=== PATIENT | female | born 1985 | race African-American/Black ===

== ENCOUNTER 2016-07-26 12:57 | Emergency (ER) | payer OTHER ==
--- NOTE | 2016-07-26 13:06 | ER Document Report ---
ED Medical Screen (RME) - General Stated Complaint: FEVER,THROAT PAIN Mode of Arrival: Ambulatory Information source: Patient Notes: Patient complains of sore throat that started yesterday with fever today. TRAVEL OUTSIDE OF THE [place] IN LAST 30 DAYS: No - Related Data Allergies/Adverse Reactions: No Known Allergies Allergy (Verified 06/21/16 17:47) Past Medical History - Past Medical History Cardiac Medical History: Reports: Hx Hypertension Neurological Medical History: Reports: Hx Migraine Skin Medical History: Reports Hx Eczema Past Surgical History: Reports: Hx Tubal Ligation - Immunizations Immunizations up to date: Yes Hx Diphtheria, Pertussis, Tetanus Vaccination: Yes - 2014 Physical Exam - HEENT Pharynx: Erythema. No: Potential airway comprom.
[2016-07-26] MEDS ORDERED: IBUPROFEN 600 MG TABLET PO ONE (14:41)
[2016-07-26] MEDS ORDERED: PREDNISONE 20 MG TABLET PO ONE (14:41)
--- NOTE | 2016-07-26 14:45 | ER Document Report ---
ED ENT - General Chief Complaint: Sore Throat Stated Complaint: FEVER,THROAT PAIN Time seen by provider: 14:40 Mode of Arrival: Ambulatory Information source: Patient Notes: 30-year-old female presents to ED for sore throat cough and sneezing and a fever yesterday. TRAVEL OUTSIDE OF THE [place] IN LAST 30 DAYS: No - HPI Patient complains to provider of: Nose problem, Throat problem, Other Onset: Yesterday Onset/Duration: Gradual Quality of pain: Stabbing Severity: Severe Pain Level: 5 Context: Recent Illness Location of pain: Nose, Sinus, Throat Associated symptoms: Cough, Fever, Runny nose, Sinus pain, Sinus drainage, Sore throat Similar symptoms previously: Yes Recently seen / treated by doctor: Yes - Related Data Allergies/Adverse Reactions: No Known Allergies Allergy (Verified 07/26/16 13:05) Past Medical History - General Information source: Patient - Social History Smoking Status: Never Smoker Chew tobacco use (# tins/day): No Frequency of alcohol use: None Drug Abuse: None Family History: Arthritis, CVA, Hypertension, Thyroid Disfunction Patient has suicidal ideation: No Patient has homicidal ideation: No - Past Medical History Cardiac Medical History: Reports: Hx Hypertension Pulmonary Medical History: Reports: None EENT Medical History: Reports: None Neurological Medical History: Reports: Hx Migraine Endocrine Medical History: Reports: None Renal/ Medical History: Reports: None Malignancy Medical History: Reports: None GI Medical History: Reports: None Musculoskeltal Medical History: Reports None Skin Medical History: Reports Hx Eczema Psychiatric Medical History: Reports: None Traumatic Medical History: Reports: None Infectious Medical History: Reports: None Surgical Hx: Negative Past Surgical History: Reports: None, Hx Tubal Ligation - Immunizations Immunizations up to date: Yes Hx Diphtheria, Pertussis, Tetanus Vaccination: Yes - 2014 Physical Exam - Vital signs Vitals: Temp Pulse Resp BP Pulse Ox 87.7 F L 111 H 20 140/79 H 100 07/26/16 13:05 07/26/16 13:05 07/26/16 13:05 07/26/16 13:05 07/26/16 13:05 Interpretation: Normal Notes: Temperature 98.7 pulse 111 respirations 20 pulse ox 100% and blood pressure 140/ 79 - General General appearance: Appears well, Alert - HEENT Head: Normocephalic, Atraumatic Eyes: Normal Pupils: PERRL Ears: Normal External canal: Normal Tympanic membrane: Normal Sinus: Normal Nasal: Purulent discharge, Swelling Mouth/Lips: Normal Mucous membranes: Normal Pharynx: Post nasal drainage Neck: Normal - Respiratory Respiratory status: No respiratory distress Chest status: Nontender Breath sounds: Normal, Nonproductive cough Chest palpation: Normal - Cardiovascular Rhythm: Regular Heart sounds: Normal auscultation Murmur: No - Abdominal Inspection: Normal Distension: No distension Bowel sounds: Normal Tenderness: Nontender Organomegaly: No organomegaly - Back Back: Normal, Nontender - Extremities General upper extremity: Normal inspection, Nontender, Normal color, Normal ROM , Normal temperature General lower extremity: Normal inspection, Nontender, Normal color, Normal ROM , Normal temperature, Normal weight bearing. No: Brett's sign - Neurological Neuro grossly intact: Yes Cognition: Normal Orientation: AAOx4 Dillon Coma Scale Eye Opening: Spontaneous Dillon Coma Scale Verbal: Oriented Dillon Coma Scale Motor: Obeys Commands Dillon Coma Scale Total: 15 Speech: Normal Motor strength normal: LUE, RUE, LLE, RLE Sensory: Normal - Psychological Associated symptoms: Normal affect, Normal mood - Skin Skin Temperature: Warm Skin Moisture: Dry Skin Color: Normal Course - Vital Signs Vital signs: Temp Pulse Resp BP Pulse Ox 87.7 F L 111 H 20 140/79 H 100 07/26/16 13:05 07/26/16 13:05 07/26/16 13:05 07/26/16 13:05 07/26/16 13:05 Discharge - Discharge Clinical Impression: URI (upper respiratory infection) Qualifiers: URI type: unspecified URI Qualified Code(s): J06.9 - Acute upper respiratory infection, unspecified Disposition: HOME, SELF-CARE Instructions: Family Physicians / Practices Additional Instructions: UPPER RESPIRATORY ILLNESS: You have a viral infection of the respiratory passages -- a "cold." This common infection causes nasal congestion, drainage, and often sore throat and cough. It is highly contagious. The disease usually lasts about 10 to 14 days. There is no "cure" for the viral infection -- it must run its course. If there is a complication, such as bacterial infection in the nose, sinuses, middle ear, or bronchial tubes, antibiotics may be required. The antibiotics won't affect the virus. Drink plenty of fluids. A humidifier may help. An expectorant medication or decongestant may make you more comfortable. Use acetaminophen or ibuprofen for fever or aches. See the doctor if fever persists over two days, if there is any significant worsening of your symptoms, or if you simply fail to improve as expected. SORE THROAT: Sore throats may be caused by viruses, bacteria, or fungi. Most are due to a virus, and must get better on their own. Bacterial sore throats, particularly those due to "strep," need treatment with antibiotics. If an antibiotic is prescribed, be sure to take the medication for a full 10 days. Failure to take the antibiotic can result in complications such as rheumatic fever. Sometimes, an injection of antibiotics is given instead of pills or liquid. This single "shot" is equal in effectiveness to the oral medication. To relieve symptoms, take acetaminophen for pain. Sip clear liquids frequently, or eat popsicles or ice chips. Anesthetic sprays or lozenges may help. Make sure the air in the room is not too dry. Avoid using decongestants or antihistamines. Call the doctor if there is no improvement in two days, or if you have difficulty breathing, increasing throat pain, high fever, rash, or frequent vomiting. STEROID MEDICATION: You have been given an injection of or oral medicine of the cortisone/ steroid class. This medication is used to control inflammation or allergy. Dominick t is usually only given for a short period of time, until the acute process subsides. There are usually no side effects from short-term use of cortisone-like medications. Some persons feel an increased sense of well-being and are not sleepy at bedtime. Long-term use of cortisone medications is best avoided, unless required for a severe condition. If your condition does not remit, or relapses after the course of corticosteroid medication, you should consult your physician. Increase your fluid intake to thin out your secretions, gargle with warm salt water frequently to decrease your sore throat. USE OF ACETAMINOPHEN (Tylenol): Acetaminophen may be taken for pain relief or fever control. It's much safer than aspirin, offering a wider range of "safe" dosages. It is safe during . Some brand names are Tylenol, Panadol, Datril, Anacin 3, Tempra, and Liquiprin. Acetaminophen can be repeated every four hours. The following are maximum recommended dosages: >89 pounds or adults 650 mg to 900 mg Acetaminophen can be repeated every four hours. Maximum dose not to exceed 4000 mg a day. Ibuprofen Ibuprofen is an excellent, safe drug for pain control. In addition, it has potent antiinflammatory effects which are beneficial, especially in the treatment of injuries, arthritis, or tendonitis. It's best to take ibuprofen with food. Persons with ulcer disease or allergy to aspirin should notify their physician of this before taking ibuprofen. Take the medication exactly as prescribed. Don't take additional doses unless instructed to do so by your doctor. If you develop wheezing, shortness of breath, hives, faintness, stomach pain, vomiting, or dark black stools, return for re-evaluation at once. FOLLOW-UP CARE: If you have been referred to a physician for follow-up care, call the physician s office for an appointment as you were instructed or within the next two days. If you experience worsening or a significant change in your symptoms, notify the physician immediately or return to the Emergency Department at any time for re-evaluation. Forms: Elevated Blood Pressure
[2016-07-26 14:59] VITALS: BP 122/78
== END 2016-07-26 14:59 | disposition home or self-care (01) ==
LOC: ER 12:57
DX: J06.9 Acute upper respiratory infection, unspecified (principal); J02.9 Acute pharyngitis, unspecified; R50.9 Fever, unspecified; R07.0 Pain in throat; R05 Cough
CPT/HCPCS: 99282; J7512

== ENCOUNTER 2016-10-30 11:04 | Emergency (ER) | payer OTHER ==
[2016-10-30 11:12] VITALS: BP 138/91
--- NOTE | 2016-10-30 11:34 | ER Document Report ---
HPI - HPI Patient complains to provider of: dental pain Pain Level: 5 Context: 31 yo female c/o pain to right upper tooth x 3 days. has appointment with oral surgeon on November 11, but pain is too intense. cant eat. tearful Associated Symptoms: None Exacerbated by: Denies Relieved by: Denies Similar symptoms previously: Yes - ROS Systems Reviewed and Negative: Yes All other systems reviewed and negative - REPRODUCTIVE Reproductive: DENIES: : - DERM Skin Color: Normal Past Medical History - General Information source: Patient - Social History Smoking Status: Current Every Day Smoker Frequency of alcohol use: None Drug Abuse: None Lives with: Family Family History: Arthritis, CVA, Hypertension, Thyroid Disfunction Patient has suicidal ideation: No Patient has homicidal ideation: No - Past Medical History Cardiac Medical History: Reports: Hx Hypertension Neurological Medical History: Reports: Hx Migraine Renal/ Medical History: Denies: Hx Peritoneal Dialysis Skin Medical History: Reports Hx Eczema Past Surgical History: Reports: Hx Tubal Ligation - Immunizations Immunizations up to date: Yes Hx Diphtheria, Pertussis, Tetanus Vaccination: Yes - 2014 Vertical Provider Document - CONSTITUTIONAL Agree With Documented VS: Yes Exam Limitations: No Limitations General Appearance: Mild Distress - tearful - INFECTION CONTROL TRAVEL OUTSIDE OF THE [place] IN LAST 30 DAYS: No - HEENT HEENT: Atraumatic, PERRLA Mouth Diagram: 1 - fractured tooth. no gingival edema - RESPIRATORY O2 Sat by Pulse Oximetry: 98 Course - Vital Signs Vital signs: Temp Pulse Resp BP Pulse Ox 98.2 F 65 16 138/91 H 98 10/30/16 11:11 10/30/16 11:11 10/30/16 11:11 10/30/16 11:11 10/30/16 11:11 Discharge - Discharge Clinical Impression: Pain, dental Condition: Stable Disposition: HOME, SELF-CARE Instructions: Oral Narcotic Medication ([facility]), Penicillin V K ([facility]) Additional Instructions: Take medications as prescribed Use OTC dental wax to protect tooth fracture Follow up with dental tomorrow for further evaluation and treatment Prescriptions: Hydrocodone/Acetaminophen [[place] 5-325 mg Tablet] 1 tab PO Q4H PRN #15 tablet PRN Reason: Penicillin V Potassium [Penicillin Vk 500 mg Tablet] 500 mg PO BID #20 tablet Forms: Return to Work
== END 2016-10-30 11:41 | disposition home or self-care (01) ==
LOC: ER 11:04
DX: K08.89 Other specified disorders of teeth and supporting structures (principal); F17.200 Nicotine dependence, unspecified, uncomplicated; I10 Essential (primary) hypertension
CPT/HCPCS: 99282

== ENCOUNTER 2016-11-07 09:45 | Emergency (ER) | payer OTHER ==
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
[2016-11-07] MEDS ORDERED: CYCLOBENZAPRINE HCL 10 MG TABLET PO ONE (10:27)
[2016-11-07] MEDS ORDERED: KETOROLAC TROMETHAMINE 60 MG/2 ML SDV IM ONE (10:27)
[2016-11-07 13:11] VITALS: BP 125/82
== END 2016-11-07 13:00 | disposition home or self-care (01) ==
LOC: ER 09:45
DX: S60.211A Contusion of right wrist, initial encounter (principal); S70.01XA Contusion of right hip, initial encounter; V49.40XA Driver injured in collision with unspecified motor vehicles in traffic accident, initial encounter; M62.830 Muscle spasm of back; M25.551 Pain in right hip; M79.601 Pain in right arm; R20.0 Anesthesia of skin; R20.2 Paresthesia of skin; I10 Essential (primary) hypertension
CPT/HCPCS: 99284

== ENCOUNTER 2017-05-02 08:12 | Emergency (ER) | payer OTHER ==
[2017-05-02] MEDS ORDERED: KETOROLAC TROMETHAMINE INJ/PF 30 MG/1 ML SDV IV ONE (08:38)
[2017-05-02] MEDS ORDERED: FAMOTIDINE INJ/PF 20 MG/2 ML SDV IV ONE (08:38)
[2017-05-02] MEDS ORDERED: NORMAL SALINE 1000 ML 1,000 ML IV ONE (08:38)
[2017-05-02] MEDS ORDERED: ONDANSETRON HCL INJ/PF 4 MG/2 ML SDV IV ONE (08:38)
[2017-05-02 09:04] LABS: ABSOLUTE EOSINOPHILS # (AUTO) 0.1 10^3/uL (0.0-0.6); ABSOLUTE LYMPHOCYTES (AUTO) 1.4 10^3/uL (0.5-4.7); ABSOLUTE MONOCYTES (AUTO) 0.4 10^3/uL (0.1-1.4); ABSOLUTE NEUT (AUTO) 2.9 10^3/uL (1.7-8.2); BASOPHILS % (AUTO) 0.7 % (0-2); EOSINOPHILS % (AUTO) 2.7 % (0-6); HEMATOCRIT 35.6 % (36.0-47.0); HEMOGLOBIN 11.5 g/dL (12.0-15.5); HGB HCT DIFFERENCE -1.1; LYMPHOCYTES % (AUTO) 28.7 % (13-45); MEAN CORPUSCULAR HEMOGLOBIN 24.6 pg (27.0-33.4); MEAN CORPUSCULAR HGB CONC 32.2 g/dL (32.0-36.0); MEAN CORPUSCULAR VOLUME 76 fl (80-97); MONOCYTES % (AUTO) 8.4 % (3-13); RED BLOOD COUNT 4.67 10^6/uL (3.72-5.28); RED CELL DISTRIBUTION WIDTH 13.4 % (11.5-14.0); SEGMENTED NEUTROPHILS % (AUTO) 59.5 % (42-78); WHITE BLOOD COUNT 4.8 10^3/uL (4.0-10.5)
[2017-05-02] MEDS ORDERED: MAG HYDROX/AL HYDROX/SIMETH SUSP 30 ML UDCUP PO ONE (09:34)
[2017-05-02] MEDS ORDERED: LIDOCAINE 2% VISCOUS SOLN 20 ML UDCUP PO ONE (09:34)
--- NOTE | 2017-05-02 09:35 | ER Document Report ---
ED General - General Chief Complaint: Upper Abdominal Pain Stated Complaint: HEADACHE Time Seen by Provider: 05/02/17 08:30 Mode of Arrival: Ambulatory Information source: Patient Notes: Patient presents complaining of headache pain that comes and goes for the past 2 days. Patient also reports upper abdominal pain that started yesterday. Patient does report nausea and vomiting yesterday although no vomiting today. Patient denies any fever or urinary symptoms. Patient does report increased belching recently. Patient denies any history of IV drug use. TRAVEL OUTSIDE OF THE [place] IN LAST 30 DAYS: No - HPI Onset: Other - 2 days Onset/Duration: Persistent Quality of pain: Sharp Pain Level: 2 Associated symptoms: Headache, Nausea, Vomiting - Yesterday. 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 denies: Fever, Recent illness EENT: No symptoms reported Cardiovascular: No symptoms reported. denies: Chest pain Respiratory: No symptoms reported. denies: Cough, Short of breath Gastrointestinal: Abdominal pain, Nausea, Vomiting. denies: Diarrhea Genitourinary: No symptoms reported. denies: Dysuria Female Genitourinary: No symptoms reported Musculoskeletal: No symptoms reported. denies: Back pain, Neck pain Skin: No symptoms reported Hematologic/Lymphatic: No symptoms reported Neurological/Psychological: Headaches. denies: Weakness Physical Exam - Vital signs Vitals: Temp Pulse BP Pulse Ox 98.4 F 75 116/71 100 05/02/17 08:17 05/02/17 08:17 05/02/17 08:17 05/02/17 08:17 - General General appearance: Appears well, Alert In distress: None - HEENT Head: Normocephalic, Atraumatic Eyes: Normal Conjunctiva: Normal Ears: Normal External canal: Normal Nasal: Normal Mouth/Lips: Normal Mucous membranes: Normal Neck: Normal, Supple. No: Lymphadenopathy, Meningismus - Respiratory Respiratory status: No respiratory distress Chest status: Nontender Breath sounds: Normal Chest palpation: Normal - Cardiovascular Rhythm: Regular Heart sounds: S1 appreciated, S2 appreciated Murmur: No - Abdominal Inspection: Obese Distension: No distension Bowel sounds: Normal Tenderness: Tender - epig, RUQ Organomegaly: No organomegaly - Back Back: Normal, Nontender. No: CVA tenderness, Vertebra tenderness - Extremities General upper extremity: Normal inspection, Normal ROM General lower extremity: Normal inspection, Normal ROM - Neurological Neuro grossly intact: Yes Cognition: Normal Melita Coma Scale Eye Opening: Spontaneous Melita Coma Scale Verbal: Oriented Swink Coma Scale Motor: Obeys Commands Melita Coma Scale Total: 15 - Psychological Associated symptoms: Normal affect, Normal mood - Skin Skin Temperature: Warm Skin Moisture: Dry Skin Color: Normal Course - Re-evaluation Re-evalutation: 05/02/17 09:35 Patient reports modest improvement of her headache symptoms. Patient does complain of continued upper abdominal tenderness. Additional medications ordered as well as ultrasound. 05/02/17 11:06 Patient reports that headache pain has resolved. Patient states that abdominal tenderness is markedly improved after GI cocktail. 05/02/17 Patient presents with abdominal pain without signs of peritonitis or other life- threatening or serious etiology. Patient appears stable for discharge and has been instructed to return immediately if the symptoms worsen in any way for reevaluation. The patient presents with headache without signs of FLOORPERSON bleed, stroke, infection, or other serious etiology. The patient is neurologically intact. Given the extremely low risk of these diagnoses further testing and evaluation for these possibilities does not appear to be indicated at this time. The patient has been instructed to return if the symptoms worsen or change in any way. - Vital Signs Vital signs: Temp Pulse Resp BP Pulse Ox 98.4 F 79 17 122/64 98 05/02/17 12:18 05/02/17 12:18 05/02/17 12:18 05/02/17 12:18 05/02/17 12:18 - Laboratory Result Diagrams: 05/02/17 08:47 05/02/17 09:18 Laboratory results interpreted by me: 05/02/17 08:47 Hgb 11.5 L Hct 35.6 L MCV 76 L MCH 24.6 L 05/02/17 11:42 Labs- Entire Visit 05/02/17 05/02/17 05/02/17 08:47 08:47 08:47 WBC 4.8 RBC 4.67 Hgb 11.5 L Hct 35.6 L MCV 76 L MCH 24.6 L MCHC 32.2 RDW 13.4 Plt Count 291 Seg Neutrophils % 59.5 Lymphocytes % 28.7 Monocytes % 8.4 Eosinophils % 2.7 Basophils % 0.7 Absolute Neutrophils 2.9 Absolute Lymphocytes 1.4 Absolute Monocytes 0.4 Absolute Eosinophils 0.1 Absolute Basophils 0.0 Sodium Cancelled Potassium Cancelled Chloride Cancelled Carbon Dioxide Cancelled Anion Gap Cancelled BUN Cancelled Creatinine Cancelled Est GFR ( Amer) Cancelled Est GFR (Non-Af Amer) Cancelled Glucose Cancelled Calcium Cancelled Total Bilirubin Cancelled Direct Bilirubin Cancelled Indirect Bilirubin Cancelled Neonat Total Bilirubin Cancelled AST Cancelled ALT Cancelled Alkaline Phosphatase Cancelled Total Protein Cancelled Albumin Cancelled Lipase Cancelled Serum HCG, Qual Cancelled 05/02/17 05/02/17 09:18 09:18 WBC RBC Hgb Hct MCV MCH MCHC RDW Plt Count Seg Neutrophils % Lymphocytes % Monocytes % Eosinophils % Basophils % Absolute Neutrophils Absolute Lymphocytes Absolute Monocytes Absolute Eosinophils Absolute Basophils Sodium 140.7 Potassium 3.6 Chloride 104 Carbon Dioxide 27 Anion Gap 10 BUN 9 Creatinine 0.65 Est GFR ( Amer) > 60 Est GFR (Non-Af Amer) > 60 Glucose 88 Calcium 8.6 Total Bilirubin 0.7 Direct Bilirubin 0.3 Indirect Bilirubin Not Reportable Neonat Total Bilirubin Not Reportable AST 27 ALT 29 Alkaline Phosphatase 70 Total Protein 7.0 Albumin 3.5 Lipase 31.6 Serum HCG, Qual NEGATIVE - Diagnostic Test Radiology reviewed: Reports reviewed Discharge - Discharge Clinical Impression: Epigastric pain Headache Qualifiers: Headache type: unspecified Headache chronicity pattern: unspecified pattern Intractability: not intractable Qualified Code(s): R51 - Headache Nausea and vomiting Qualifiers: Vomiting type: unspecified Vomiting Intractability: non-intractable Qualified Code(s): R11.2 - Nausea with vomiting, unspecified Condition: Stable Disposition: HOME, SELF-CARE Instructions: Abdominal Pain ([facility]), Antinausea Medication ([facility]), Gastritis ([facility] ), Headache ([facility]), Intravenous (IV) Fluids ([facility]), Toradol Injection ([facility]) Additional Instructions: Return immediately for any new or worsening symptoms Followup with your primary care provider, call tomorrow to make a followup appointment Stay well hydrated Follow-up with a primary care provider for further evaluation Prescriptions: Naproxen [Naprosyn 250 Nmg Tablet] 1 tab PO BID #14 tablet Omeprazole Magnesium [Prilosec Otc] 20 mg PO DAILY #15 tablet. Promethazine HCl [Phenergan 25 mg Tablet] 25 mg PO Q6H PRN #12 tablet PRN Reason: Sucralfate [Carafate 1 gm Tablet] 1 gm PO ACHS #40 tablet Forms: Return to Work Referrals: BRAYDON LANDRY MD [Primary Care Provider] - Follow up tomorrow
[2017-05-02 09:48] LABS: ALANINE AMINOTRANSFERASE 29 U/L (9-52); ALBUMIN 3.5 g/dL (3.5-5.0); ALKALINE PHOSPHATASE 70 U/L (38-126); ANION GAP 10 (5-19); ASPARTATE AMINO TRANSFERASE 27 U/L (14-36); BILIRUBIN,DIRECT 0.3 mg/dL (0.0-0.4); BILIRUBIN,TOTAL 0.7 mg/dL (0.2-1.3); BLOOD UREA NITROGEN 9 mg/dL (7-20); CALCIUM 8.6 mg/dL (8.4-10.2); CARBON DIOXIDE 27 mmol/L (22-30); CHLORIDE 104 mmol/L (98-107); CREATININE RESULT 0.65 mg/dL (0.52-1.25); GLUCOSE 88 mg/dL (75-110); LIPASE 31.6 U/L (23-300); POTASSIUM 3.6 mmol/L (3.6-5.0); SODIUM 140.7 mmol/L (137-145)
--- NOTE | 2017-05-02 11:15 | RADIOLOGY REPORT (SQ) ---
EXAM DESCRIPTION: U/S ABDOMEN LIMITED W/O DOP COMPLETED DATE/TIME: 05/02/2017 11:00 am REASON FOR STUDY: Epig, RUQ pain COMPARISON: None. TECHNIQUE: Dynamic and static grayscale images acquired of the abdomen and recorded on PACS. Damiono antonia selected color Doppler and spectral images recorded. LIMITATIONS: None. FINDINGS: PANCREAS: No masses. Visualized pancreatic duct normal caliber. LIVER: 17.1 cm. Normal echotexture. LIVER VASCULATURE: Normal directional flow of the main portal vein and hepatic veins. GALLBLADDER: No stones. Normal wall thickness. No pericholecystic fluid. ULTRASOUND-DETECTED JO'S SIGN: Negative. INTRAHEPATIC DUCTS AND COMMON DUCT: CBD and intrahepatic ducts normal caliber. No filling defects. INFERIOR VENA CAVA: Normal flow. AORTA: No aneurysm. RIGHT KIDNEY: Normal size, 10.4 cm. Normal echogenicity. No solid or suspicious masses. No hydroneph rosis. No calcifications. PERITONEAL AND RIGHT PLEURAL SPACE: No ascites or effusions. OTHER: No other significant findings. IMPRESSION: Borderline hepatomegaly. There is normal echotexture, however. No other significant fi ndings are seen. TECHNICAL DOCUMENTATION: JOB ID: [id number] [employer]- All Rights Reserved
[2017-05-02 12:19] VITALS: BP 122/64
== END 2017-05-02 12:19 | disposition home or self-care (01) ==
LOC: ER 08:12
DX: R10.13 Epigastric pain (principal); R51 Headache; R11.2 Nausea with vomiting, unspecified
CPT/HCPCS: 99284; 96361; 96374; 96375; 36415; 83690; 84703; 85025; 80053; 76705; J3490; J1885; J2405; J7030; S0028

== ENCOUNTER 2017-07-14 15:41 | Emergency (ER) | payer OTHER ==
[2017-07-14 15:53] VITALS: BP 133/75
== END 2017-07-14 17:30 | disposition left against medical advice (07) ==
LOC: ER 15:41
DX: Z53.21 Procedure and treatment not carried out due to patient leaving prior to being seen by health care provider (principal)

== ENCOUNTER 2018-09-07 08:31 | Emergency (ER) | payer OTHER ==
[2018-09-07 09:43] LABS: APPEARANCE,URINE CLOUDY; BILIRUBIN,URINE NEGATIVE (NEGATIVE); COLOR,URINE YELLOW; GLUCOSE, URINE NEGATIVE (NEGATIVE); KETONES,URINE NEGATIVE (NEGATIVE); LEUKOCYTE ESTERASE,URINE SMALL (NEGATIVE); NITRITE,URINE NEGATIVE (NEGATIVE); PROTEIN,URINE NEGATIVE (NEGATIVE); URINE SPECIFIC GRAVITY 1.009; UROBILINOGEN,URINE NEGATIVE mg/dL (<2.0)
[2018-09-07] MEDS ORDERED: AZITHROMYCIN 250 MG TABLET PO ONE (09:44)
[2018-09-07] MEDS ORDERED: LIDOCAINE 1% INJ-PF (10 MG/ML) 30 ML SDV INFIL ONE (09:44)
[2018-09-07] MEDS ORDERED: CEFTRIAXONE INJ 250 MG VIAL IM ONE (09:44)
--- NOTE | 2018-09-07 09:48 | ER Document Report ---
ED General - General Chief Complaint: Urinary Problem Stated Complaint: POSSIBLE UTI Time Seen by Provider: 09/07/18 09:10 Primary Care Provider: [facility] [Provider Group] - Follow up in 3-5 days Notes: Patient is a 33-year-old female that presents to the emergency department for chief complaint of dysuria and vaginal discharge. Patient states that she started having the symptoms about 4 days ago, with some burning with urination, and she is had some odorous vaginal discharge that she was concerned about as well. She denies having any abnormal vaginal bleeding, and denies any pelvic pain or pelvic discomfort. Denies having any pain with intercourse. She states she has had bacterial vaginosis in the past and it feels that it similar. She is also concerned she may have been exposed to gonorrhea or chlamydia, but she is not 100% on this. She states that she recently gave oral sex with 1 of her friends that also has other partners and she was concerned about this. Denies any any fevers, chills, night sweats, nausea, vomiting, abdominal pain, chest pain or shortness of breath. Past Medical History: Hypertension Past Surgical History: Tubal ligation Social History: Denies tobacco, alcohol or drug use. Family History: Reviewed and noncontributory for presenting illness Allergies: Reviewed, see documented allergy list. REVIEW OF SYSTEMS: Other than noted above, the 12 point review of systems was reviewed with the patient and were negative, all pertinent findings are included in the HPI. PHYSICAL EXAMINATION: Vital signs reviewed, nursing noted reviewed. GENERAL: Well-appearing, well-nourished and in no acute distress. HEAD: Atraumatic, normocephalic. EYES: Eyes appear normal, sclera anicteric, conjunctiva are normal. ENT: Moist mucous membranes. NECK: Normal range of motion, supple without lymphadenopathy LUNGS: Breath sounds clear to auscultation bilaterally and equal. No wheezes rales or rhonchi. HEART: Regular rate and rhythm without murmurs Abdomen: Obese, soft, nontender, bowel sounds present. No rebound, guarding or rigidity. EXTREMITIES: Nontender, good range of motion, no pitting or edema. NEUROLOGICAL: No focal neurological deficits. Moves all extremities spontaneously Motor and sensory grossly intact on exam. PSYCH: Normal mood, normal affect. SKIN: Warm, Dry, normal turgor, no rashes or lesions noted on exposed skin TRAVEL OUTSIDE OF THE [place] IN LAST 30 DAYS: No - Related Data Allergies/Adverse Reactions: No Known Allergies Allergy (Verified 09/07/18 08:34) Past Medical History - Social History Smoking Status: Never Smoker Frequency of alcohol use: None Drug Abuse: None Family History: Arthritis, CVA, Hypertension, Thyroid Disfunction Patient has suicidal ideation: No Patient has homicidal ideation: No - Past Medical History Cardiac Medical History: Reports: Hx Hypertension Neurological Medical History: Reports: Hx Migraine Renal/ Medical History: Denies: Hx Peritoneal Dialysis Skin Medical History: Reports Hx Eczema Past Surgical History: Reports: Hx Tubal Ligation - Immunizations Immunizations up to date: Yes Hx Diphtheria, Pertussis, Tetanus Vaccination: Yes - 2014 Physical Exam - Vital signs Vitals: Temp Pulse Resp BP Pulse Ox 99.6 F 83 16 131/81 H 100 09/07/18 08:36 09/07/18 08:36 09/07/18 08:36 09/07/18 08:36 09/07/18 08:36 Course - Re-evaluation Re-evalutation: Patient seen and examined, vital signs reviewed, patient appears well on exam, she did appear anxious and had some concerns about possible STD exposure, therefore we will treat her with Rocephin and azithromycin, denies any allergies. Her UA was reviewed, only trace leukocyte esterase, will send for culture, we will not treat for UTI at this time, rather will treat for bacterial vaginosis given that she had an odorous discharge. Given Flagyl 500 mg twice daily for 7 days. Advised to follow-up with women's health which she was agreeable to. - Vital Signs Vital signs: Temp Pulse Resp BP Pulse Ox 99.6 F 83 16 131/81 H 100 09/07/18 08:36 09/07/18 08:36 09/07/18 08:36 09/07/18 08:36 09/07/18 08:36 - Laboratory Laboratory results interpreted by me: 09/07/18 09:23 Ur Leukocyte Esterase SMALL H Urine Ascorbic Acid 20 H Discharge - Discharge Clinical Impression: Bacterial vaginosis, STD exposure Condition: Stable Disposition: HOME, SELF-CARE Instructions: Vaginosis, Bacterial ([facility]) Additional Instructions: You have been treated for both gonorrhea and chlamydia today, your testing is pending, if there is a positive result you will be notified, please take the prescribed Flagyl twice daily for 7 days, and follow-up with women's health. Prescriptions: Metronidazole [Flagyl 500 mg Tablet] 500 mg PO BID #14 tablet Referrals: [facility] [Provider Group] - Follow up in 3-5 days
[2018-09-07 11:35] VITALS: BP 137/82
[2018-09-07 11:46] LABS: CHLAM PCR NOT DETECTED (NOT DETECT); GON PCR NOT DETECTED (NOT DETECT)
== END 2018-09-07 10:36 | disposition home or self-care (01) ==
LOC: ER 08:31
DX: N76.0 Acute vaginitis (principal); B96.89 Other specified bacterial agents as the cause of diseases classified elsewhere; Z20.2 Contact with and (suspected) exposure to infections with a predominantly sexual mode of transmission; R39.198 Other difficulties with micturition; R30.0 Dysuria; I10 Essential (primary) hypertension
CPT/HCPCS: 99283; 96372; 87086; 81025; 87088; 81001; 87491; 87591; J3490; J0696

== ENCOUNTER 2018-09-18 08:41 | Emergency (ER) | payer OTHER ==
[2018-09-18 08:48] VITALS: BP 134/82
--- NOTE | 2018-09-18 09:07 | ER Document Report ---
HPI - HPI Time Seen by Provider: 09/18/18 09:06 Pain Level: 2 Notes: 33-year-old female presents for evaluation of what she feels to be swelling of her upper lip, on the left side especially patient was diagnosed with atopic dermatitis by a continuous improvement black belt for the same complaints a month ago to 2 months ago. Was given cream for this, patient states that the cream did help. Denies any fevers or chills, denies any pain to her lip, no new travel medications or foods. Denies fevers, chills, chest pain,palpitations, shortness of breath, dyspnea, nausea, vomiting, diarrhea, abdominal pain, hematuria,blurred vision, double vision, loss of vision, speech changes, LH, dizziness, syncope, headaches, wheezing, ST, URI, neck pain, weakness, muscle paralysis, weakness in bilateral upper or lower extremities equally or rash. - REPRODUCTIVE Reproductive: DENIES: : Past Medical History - General Information source: Patient - Social History Smoking Status: Unknown if Ever Smoked Family History: Arthritis, CVA, Hypertension, Thyroid Disfunction - Past Medical History Cardiac Medical History: Reports: Hx Hypertension Neurological Medical History: Reports: Hx Migraine Renal/ Medical History: Denies: Hx Peritoneal Dialysis Skin Medical History: Reports Hx Eczema Past Surgical History: Reports: Hx Tubal Ligation - Immunizations Immunizations up to date: Yes Hx Diphtheria, Pertussis, Tetanus Vaccination: Yes - 2014 [facility] Provider Document - CONSTITUTIONAL Agree With Documented VS: Yes Notes: PHYSICAL EXAMINATION: GENERAL: Well-appearing, well-nourished and in no acute distress. HEAD: Atraumatic, normocephalic. EYES: Pupils equal round and reactive to light, extraocular movements intact, conjunctiva are normal. ENT: Nares patent, oropharynx clear without exudates. Moist mucous membranes. No vesicular, indurated or warmth to touch to upper lip, very scant unlikely even to really call left upper lip swollen. No rashes. Uvula midline, airway patent. Speech clear tongue midline NECK: Normal range of motion, supple without lymphadenopathy LUNGS: Breath sounds clear to auscultation bilaterally and equal. No wheezes rales or rhonchi. HEART: Regular rate and rhythm without murmurs ABDOMEN: Soft, nontender, nondistended abdomen. No guarding, no rebound. No masses appreciated. Female : deferred Musculoskeletal: Normal range of motion, no pitting or edema. No cyanosis. NEUROLOGICAL: Cranial nerves grossly intact. Normal speech, normal gait. Normal sensory, motor exams PSYCH: Normal mood, normal affect. SKIN: Warm, Dry, normal turgor, no rashes or lesions noted. - INFECTION CONTROL TRAVEL OUTSIDE OF THE [place] IN LAST 30 DAYS: No Course - Re-evaluation Re-evalutation: 09/18/18 09:2 Afebrile, vitals stable no distress. Patient was seen by continuous improvement black belt 2 months ago same issue, prescribed cream Elidel for atopic dermatitis. Patient states t hat this did help however she was concerned because she had lip swelling and also wanted to know so she did have to be with her today. Vaccinations are up-to-date. Denies any new medications, travel or food. Denies any difficulty breathing or, chest pain, shortness of breath, no angioedema. Clinical examination does confirm a angioedema, patent airway, uvula midline. Patient is in no respiratory or overt distress. Patient wanted a second opinion. No noted lesions, vesicles noted on upper lip. No extending rash past vermilion border. Her vaccinations are up-to-date. No induration, warmth or tenderness to palpation. No lymphadenopathies. After performing a Medical Screening Examination, I estimate there is LOW risk for any life threatening rash. At this time the patient looks extremely well and there are no signs of systemic infection, however this may change at any time and the rash may change. I have reevaluated this patient multiple times and no significant life threatening changes are noted. The patient and I have discussed the diagnosis and risks, and we agree with discharging home with close follow-up with the understanding that symptoms and presentations can change. We also discussed returning to the Emergency Department immediately if new or worsening symptoms occur. We have discussed the symptoms which are most concerning (e.g., changing or worsening pain, fever, numbness, weakness, cool or painful digits) that necessitate immediate return. - Vital Signs Vital signs: Temp Pulse Resp BP Pulse Ox 98.2 F 77 14 134/82 H 99 09/18/18 08:46 09/18/18 08:46 09/18/18 08:46 09/18/18 08:46 09/18/18 08:46 Discharge - Discharge Clinical Impression: Atopic dermatitis Condition: Stable Disposition: HOME, SELF-CARE Instructions: Atopic Dermatitis (Eczema) ([facility]) Additional Instructions: Use cream as directed that was given to her by continuous improvement black belt for same diagnosis. Apply cool compress to site 20 minutes on 20 minutes off several times a day. Take [id number] ibuprofen and Tylenol if you experience any pain. If rash becomes worse, please be reevaluated. Return immediately for any new or worsening symptoms. Follow up with primary care provider, call tomorrow to make followup appointment. Forms: Return to Work Referrals: BRAYDON LANDRY MD [Primary Care Provider] - Follow up as needed
== END 2018-09-18 09:32 | disposition home or self-care (01) ==
LOC: ER 08:41
DX: L20.9 Atopic dermatitis, unspecified (principal); I10 Essential (primary) hypertension
CPT/HCPCS: 99283

== ENCOUNTER 2019-05-04 18:58 | Emergency (ER) | payer OTHER ==
[2019-05-04 19:04] VITALS: BP 122/73
--- NOTE | 2019-05-04 19:16 | ER Document Report ---
ED Medical Screen (RME) - General Chief Complaint: Vaginal Discharge Stated Complaint: VAGINAL DISCHARGE Time Seen by Provider: 05/04/19 19:14 Primary Care Provider: BRAYDON LANDRY MD [Primary Care Provider] - Follow up as needed Information source: Patient Notes: Patient complains of vaginal discharge with itching that started today. No fever, no concern for . No urinary symptoms. I have greeted and performed a rapid initial assessment of this patient. A comprehensive ED assessment and evaluation of the patient, analysis of test results and completion of the medical decision making process will be conducted by additional ED providers. TRAVEL OUTSIDE OF THE [place] IN LAST 30 DAYS: No - Related Data Allergies/Adverse Reactions: No Known Allergies Allergy (Verified 09/18/18 08:42) Past Medical History - Past Medical History Cardiac Medical History: Reports: Hx Hypertension Neurological Medical History: Reports: Hx Migraine Renal/ Medical History: Denies: Hx Peritoneal Dialysis Skin Medical History: Reports Hx Eczema Past Surgical History: Reports: Hx Tubal Ligation - Immunizations Immunizations up to date: Yes Hx Diphtheria, Pertussis, Tetanus Vaccination: Yes - 2014 Physical Exam - Vital signs Vitals: Temp Pulse Resp BP Pulse Ox 98.1 F 91 16 122/73 100 05/04/19 19:02 05/04/19 19:02 05/04/19 19:02 05/04/19 19:02 05/04/19 19:02 - General General appearance: Appears well, Alert In distress: None Course - Vital Signs Vital signs: Temp Pulse Resp BP Pulse Ox 98.1 F 91 16 122/73 100 05/04/19 19:02 05/04/19 19:02 05/04/19 19:02 05/04/19 19:02 05/04/19 19:02 Doctor's Discharge - Discharge Referrals: BRAYDON LANDRY MD [Primary Care Provider] - Follow up as needed
--- NOTE | 2019-05-04 19:40 | ER Document Report ---
ED General - General Chief Complaint: Vaginal Discharge Stated Complaint: VAGINAL DISCHARGE Time Seen by Provider: 05/04/19 19:14 Primary Care Provider: BRAYDON LANDRY MD [Primary Care Provider] - Follow up as needed TRAVEL OUTSIDE OF THE [place] IN LAST 30 DAYS: No - HPI Notes: 33-year-old female presents with vaginal itching burning and possible yeast infection. Patient describes proxy 2 days gradual onset of what she thinks "looks like thrush in that area". Recent antibiotic use, is had several yeast infections in the past and this feels similar. No real vaginal discharge, no bleeding. No history of STI. Denies any pelvic or abdominal pain. No systemic symptoms. Moderate intensity, gradual onset, nonradiating. No other modifying factors, no other associated symptoms, no other provocative or palliative factors. - Related Data Allergies/Adverse Reactions: No Known Allergies Allergy (Verified 09/18/18 08:42) Home Medications: Losartan Past Medical History - General Information source: Patient - Social History Smoking Status: Unknown if Ever Smoked Family History: Arthritis, CVA, Hypertension, Thyroid Disfunction Patient has suicidal ideation: No Patient has homicidal ideation: No - Medical History Notes: Includes prior yeast infections, no history of diabetes - Past Medical History Cardiac Medical History: Reports: Hx Hypertension Neurological Medical History: Reports: Hx Migraine Renal/ Medical History: Denies: Hx Peritoneal Dialysis Skin Medical History: Reports Hx Eczema Past Surgical History: Reports: Hx Tubal Ligation - Immunizations Immunizations up to date: Yes Hx Diphtheria, Pertussis, Tetanus Vaccination: Yes - 2014 Review of Systems - Review of Systems Notes: Review of systems as in history of present illness, otherwise no significant headache, chest pain, abdominal pain. Physical Exam - Vital signs Vitals: Temp Pulse Resp BP Pulse Ox 98.1 F 91 16 122/73 100 05/04/19 19:02 05/04/19 19:02 05/04/19 19:02 05/04/19 19:02 05/04/19 19:02 - Notes Notes: General: Well devloped, no acute distress. HEENT: Normocephalic, atraumatic. Pupils equal round reactive to light. Mucosa moist. No JVD. Chest: No trauma, normal excursion. Respiratory: Good air exchange, normal excursion. Cardiac: Regular rhythm Abdomen: Soft, benign. Nondistended. Back: No asymmetry or gross abnormality. Motor: Grossly normal power and tone. Neurologic: Alert, nonfocal. Vascular: Well perfused Skin: No petechiae or purpura Course - Re-evaluation Re-evalutation: 05/04/19 19:39 Sectionally well-appearing 33-year-old female with benign exam, high pretest probability for Wanda vaginitis. I have offered to proceed with formal pelvic examination and additional work-up but she has declined, I think the pretest probability for Wanda vaginitis is very high we will treat empirically with a single dose of Diflucan, will do a screening Accu-Chek to exclude hyperglycemia, she will follow-up with her primary care doctor or [facility]. - Vital Signs Vital signs: Temp Pulse Resp BP Pulse Ox 98.1 F 91 16 122/73 100 05/04/19 19:02 05/04/19 19:02 05/04/19 19:02 05/04/19 19:02 05/04/19 19:02 Discharge - Discharge Clinical Impression: Wanda vaginitis Condition: Stable Disposition: HOME, SELF-CARE Instructions: Vaginal Yeast Infection ([facility]) Referrals: BRAYDON LANDRY MD [Primary Care Provider] - Follow up as needed
[2019-05-04] MEDS ORDERED: FLUCONAZOLE 100 MG TABLET PO ONE (19:54)
== END 2019-05-04 20:08 | disposition home or self-care (01) ==
LOC: ER 18:58
DX: B37.3 Candidiasis of vulva and vagina (principal); N89.8 Other specified noninflammatory disorders of vagina; I10 Essential (primary) hypertension
CPT/HCPCS: 82962; 99283

== ENCOUNTER 2019-06-10 17:06 | Emergency (ER) | payer OTHER ==
[2019-06-10] MEDS ORDERED: BUTALB/ACETAMINOPHEN/CAFFEINE 1 TAB EACH PO ONE (17:56)
--- NOTE | 2019-06-10 17:57 | ER Document Report ---
ED Medical Screen (RME) - General Chief Complaint: Headache >24 hrs old Stated Complaint: HEADACHE Time Seen by Provider: 06/10/19 17:53 Primary Care Provider: BRAYDON LANDRY MD [Primary Care Provider] - Follow up as needed Information source: Patient Notes: Patient presents complaining of headache pain off and on for the past 2 weeks. Patient has had some nausea. Patient describes pain as an aching with occasional tightness. No head injury, no fever. I have greeted and performed a rapid initial assessment of this patient. A comprehensive ED assessment and evaluation of the patient, analysis of test results and completion of the medical decision making process will be conducted by additional ED providers. TRAVEL OUTSIDE OF THE [place] IN LAST 30 DAYS: No - Related Data Allergies/Adverse Reactions: No Known Allergies Allergy (Verified 06/10/19 17:50) Past Medical History - Past Medical History Cardiac Medical History: Reports: Hx Hypertension Neurological Medical History: Reports: Hx Migraine Renal/ Medical History: Denies: Hx Peritoneal Dialysis Skin Medical History: Reports Hx Eczema Past Surgical History: Reports: Hx Tubal Ligation - Immunizations Immunizations up to date: Yes Hx Diphtheria, Pertussis, Tetanus Vaccination: Yes - 2014 Physical Exam - Vital signs Vitals: Temp Pulse Resp BP Pulse Ox 98.1 F 94 18 129/80 H 100 06/10/19 17:10 06/10/19 17:10 06/10/19 17:10 06/10/19 17:10 06/10/19 17:10 - Neurological Neuro grossly intact: Yes Orientation: AAOx4 [place] Coma Scale Eye Opening: Spontaneous [place] Coma Scale Verbal: Oriented [place] Coma Scale Motor: Obeys Commands [place] Coma Scale Total: 15 Course - Vital Signs Vital signs: Temp Pulse Resp BP Pulse Ox 98.1 F 94 18 129/80 H 100 06/10/19 17:10 06/10/19 17:10 06/10/19 17:10 06/10/19 17:10 06/10/19 17:10 Doctor's Discharge - Discharge Referrals: BRAYDON LANDRY MD [Primary Care Provider] - Follow up as needed
--- NOTE | 2019-06-10 18:50 | ER Document Report ---
ED Headache - General Chief Complaint: Headache Stated Complaint: HEADACHE Time Seen by Provider: 06/10/19 17:53 Primary Care Provider: BRAYDON LANDRY MD [Primary Care Provider] - Follow up in 3-5 days Notes: Patient is a 33-year-old female presents the emergency department with a chief complaint of headache. Patient states that her headache started about a week ago. States that it is in the middle of her forehead and radiates behind both eyes. Patient states that when she presses on her forehead, it makes it feel better. Admits to some post nasal drip. Denies any fever, body aches, chills, or any other symptoms. TRAVEL OUTSIDE OF THE [place] IN LAST 30 DAYS: No - Related Data Allergies/Adverse Reactions: No Known Allergies Allergy (Verified 06/10/19 17:50) Past Medical History - General Information source: Patient - Social History Smoking Status: Never Smoker Frequency of alcohol use: None Drug Abuse: None Family History: Arthritis, CVA, Hypertension, Thyroid Disfunction Patient has suicidal ideation: No Patient has homicidal ideation: No - Past Medical History Cardiac Medical History: Reports: Hx Hypertension Neurological Medical History: Reports: Hx Migraine Renal/ Medical History: Denies: Hx Peritoneal Dialysis Skin Medical History: Reports Hx Eczema Past Surgical History: Reports: Hx Tubal Ligation - Immunizations Immunizations up to date: Yes Hx Diphtheria, Pertussis, Tetanus Vaccination: Yes - 2014 Review of Systems - Review of Systems Notes: REVIEW OF SYSTEMS: CONSTITUTIONAL : Denies recent illness. Denies recent unintentional weight loss. Denies fever, chills, or sweats. EENT: Denies eye, ear, throat, or mouth pain, discharge, or symptoms. Denies nasal or sinus congestion. CARDIOVASCULAR: Denies chest pain. RESPIRATORY: Denies shortness of breath, cough, congestion, difficulty breathing , or wheezing. GASTROINTESTINAL: Denies nausea, vomiting, and diarrhea. Denies abdominal pain. Denies constipation. GENITOURINARY: Denies difficulty urinating, burning, blood in urine, urgency or frequency. MUSCULOSKELETAL: Denies neck and back pain. Denies joint pain or swelling. SKIN: Denies rash, itchiness, or lesions HEMATOLOGIC : Denies easy bruising or bleeding. LYMPHATIC: Denies swollen, painful, enlarged glands. NEUROLOGICAL: See HPI. PSYCHIATRIC: Denies stress, anxiety, alteration in sleep patterns, or depression. All other systems reviewed and negative. Physical Exam - Vital signs Vitals: Temp Pulse Resp BP Pulse Ox 98.1 F 94 18 129/80 H 100 06/10/19 17:10 06/10/19 17:10 06/10/19 17:10 06/10/19 17:10 06/10/19 17:10 - Notes Notes: PHYSICAL EXAMINATION: GENERAL: Appears well, healthy, well-nourished, no acute distress. HEAD: Normocephalic, atraumatic. EYES: PERRL, conjunctiva normal, all extraocular movements intact, sclera nonicteric ENT: Moist mucous membranes. Edema and erythema noted to nasal mucosa. NECK: Supple, no noticeable swelling, redness, rash. Normal range of motion. LUNGS: Equal breath sounds bilaterally and clear to auscultation. No wheezes rales or rhonchi. CARDIOVASCULAR: S1-S2, regular rate, regular rhythm. Radial pulses 2+, normal. ABDOMEN: Normoactive bowel sounds. Soft, nontender, no guarding, no rebound tenderness, and no masses palpated. EXTREMITIES: Normal strength and range of motion, no pitting or edema. No cyanosis. NEUROLOGICAL: Moves all extremities upon command. Strength 5/5 in all extremities. PSYCH: Normal mood, normal affect. SKIN: Warm, dry. No rash, lesions, ulcerations noted. Normal skin turgor. Course - Re-evaluation Re-evalutation: 06/10/19 20:08 Patient states that she feels much better after receiving the Fioricet she received in triage. Patient will be sent home with Flonase, as she has edema and erythema noted to her nasal mucosa. I have instructed her to follow-up with her primary care provider if she continues to have the same symptoms. No neurological deficits noted. I have a very low suspicion for any life- threatening etiology at this time. Follow-up precautions were given. Verbal discharge instructions were given to the patient. They verbalized understanding. They are stable for discharge. - Vital Signs Vital signs: Temp Pulse Resp BP Pulse Ox 98.1 F 94 18 129/80 H 100 06/10/19 17:10 06/10/19 17:10 06/10/19 17:10 06/10/19 17:10 06/10/19 17:10 Discharge - Discharge Clinical Impression: Headache Qualifiers: Headache type: unspecified Headache chronicity pattern: acute headache Intractability: not intractable Qualified Code(s): R51 - Headache Condition: Stable Disposition: HOME, SELF-CARE Additional Instructions: You were seen today for a headache. Please follow-up with your primary care doctor regarding today's ED visit. Return to emergency department immediately if you develop a headache that gets to its maximum severity within 20 minutes of onset, you pass out, you develop weakness, numbness, changes in your vision, become unable to keep any fluids down for more than 12 hours, or develop a fever greater than 100.4 degrees Fahrenheit. If you develop a similar migraine headache in the future I recommend that you immediately take 600 mg of ibuprofen and 50 mg of Benadryl and go to sleep as quickly as possible. This can often prevent your migraine headache from becoming severe. You are also being started on Flonase, medication to help with the inflammation in your nose. Please take as directed. Prescriptions: Fluticasone Propionate [Flonase Nasal [place] 50 Mcg/[place] 16 gm] 2 sprays NASL DAILY #1 inhaler Forms: Return to Work Referrals: BRAYDON LANDRY MD [Primary Care Provider] - Follow up in 3-5 days
[2019-06-10 20:15] VITALS: BP 129/79
== END 2019-06-10 20:20 | disposition home or self-care (01) ==
LOC: ER 17:06
DX: R51 Headache (principal); R09.82 Postnasal drip; I10 Essential (primary) hypertension
CPT/HCPCS: 99283; J3490